=== PATIENT | female | born 2000 ===

== ENCOUNTER → 2018-04-09 | Outpatient (CLI) | payer OTHER ==
[~2018-04-09] MED LIST: GADOBUTROL 10 MMOL/10 ML VIAL IV ONE
--- NOTE | 2018-04-09 11:17 | RAD ---
MRI of the brain without contrast 04/09/2018 Clinical History: Right-sided headaches for 2 months. Technique: Unenhanced T1-weighted sagittal and axial, T2-weighted axial and coronal and FLAIR, gradient echo and diffusion-weighted axial images of the brain were obtained. Intravenous contrast was unable to be administered due to inability to establish IV access in this patient by the molecular technologist. Findings: The ventricles and sulci are within normal limits in size and configuration. No area of abnormal signal intensity is seen involving brain parenchyma. No extra-axial fluid collection is seen. There is no MRI evidence of acute ischemia/infarction. Mild mucosal thickening in seen scattered throughout the paranasal sinuses. Normal flow voids are seen within the major vascular structures surrounding the brain parenchyma. Impression: 1. Negative MRI of the brain. 2. Mild paranasal sinus disease. Electronically signed by: Goyo Lipscomb MD (04/09/2018 11:12 AM) [id number]
== END | disposition home or self-care (01) ==
LOC: MRI 08:45
PROVIDERS: ATTEND Psychiatry & Neurology Neurology
DX: G93.2 Benign intracranial hypertension (principal); J32.9 Chronic sinusitis, unspecified
CPT/HCPCS: 70551